=== PATIENT | female | born 1980 | race Asian ===

== ENCOUNTER 2022-08-25 22:09 | Emergency (ER) | payer BC ==
[~2022-08-25] VITALS: Ht 157.5 cm; Wt 61.2 kg
[2022-08-25 22:30] VITALS: BP_SYST 104
[2022-08-25 22:47] LABS: BILIRUBIN,URINE NEGATIVE (NEGATIVE); BLOOD, URINE 3+ (NEGATIVE); CLARITY/URINE CLEAR (CLEAR); COLOR,URINE ORANGE (YELLOW); GLUCOSE,URINE NEGATIVE (NEGATIVE); KETONES,URINE NEGATIVE (NEGATIVE); LEUKOCYTE ESTERASE ,URINE 3+ (NEGATIVE); NITRITE, URINE NEGATIVE (NEGATIVE); PH,URINE 6.5 (5.0-8.0); PROTEIN URINE 2+ (NEGATIVE); UROBILINOGEN,URINE 0.2 (0.2-1.0)
[2022-08-25 23:03] LABS: RBC,URINE 20-50 /HPF (0-3)
[2022-08-25 23:04] LABS: BACTERIA,URINE None Seen /HPF (None Seen)
[2022-08-25 23:07] LABS: WBC,URINE 20-50 /HPF (0-3)
[2022-08-26] MEDS ORDERED: KETOROLAC TROMETHAMINE 60 MG/2 ML VIAL IM ONE
[2022-08-26] MEDS ORDERED: PHEN-726 PO (00:18)
[2022-08-26] MEDS ORDERED: CIPR500T5 PO (00:18)
[2022-08-26 00:39] VITALS: BP_SYST 104
== END 2022-08-26 00:39 | disposition home or self-care (01) ==
LOC: SED 22:09
DX: N39.0 Urinary tract infection, site not specified (principal)
CPT/HCPCS: 99283; 81000; 87086; 96372; J1885